=== PATIENT | female | born 1995 | race Hispanic/Latino ===

== ENCOUNTER 2022-10-18 13:26 | Emergency (ER) | payer OTHER ==
[~2022-10-18] VITALS: Ht 157.5 cm; Wt 111.4 kg
[2022-10-18] MEDS ORDERED: NS 1,000 ML IV ONE (13:55)
[2022-10-18 14:27] LABS: VENOUS BASE EXCESS 1.3 (-2.0-2.0); VENOUS O2 SATURATION 92.8 % (60.0-80.0); VENOUS PARTIAL PRESSURE CO2 46.5 mmHg (38.0-50.0); VENOUS PARTIAL PRESSURE O2 64.9 mmHg (30.0-50.0); VENOUS PH 7.381 UNITS (7.330-7.430); VENOUS STANDARD HCO3 25.5 MEQ/L; VENOUS TOTAL CO2 28.4 MEQ/L (24.0-28.0)
[2022-10-18 14:43] LABS: BASO # 0.1 10^3/uL (0.0-0.2); BASO % 0.7 % (0.0-1.0); LYMPH # 2.9 10^3/uL (1.5-5.0); LYMPH % 29.8 % (24.0-44.0); MEAN CORPUSCULAR HEMOGLOBIN 25.9 pg (27.0-33.0); MEAN CORPUSCULAR HGB CONC 32.6 g/dl (32.0-36.5); MEAN CORPUSCULAR VOLUME 79.5 fl (80.0-96.0); MONO # 0.5 10^3/uL (0.0-0.8); MONO % 4.7 % (2.0-8.0); NEUTROPHILS # 6.2 10^3/uL (1.5-8.5); NEUTROPHILS % 64.3 % (36.0-66.0); PLATELET COUNT, AUTOMATED 414 10^3/uL (150-450); RED BLOOD COUNT 5.41 10^6/uL (4.00-5.40); WHITE BLOOD COUNT 9.7 10^3/uL (4.0-10.0)
[2022-10-18 14:59] LABS: AMPHETAMINES LEVEL URINE NEGATIVE (NEGATIVE); BARBITURATES URINE NEGATIVE (NEGATIVE); CANNABINOIDS URINE NEGATIVE (NEGATIVE); COCAINE METABOLITE URINE NEGATIVE (NEGATIVE); METHADONE URINE NEGATIVE (NEGATIVE); OPIATES URINE NEGATIVE (NEGATIVE); PHENCYCLIDINE URINE NEGATIVE (NEGATIVE)
[2022-10-18 15:00] LABS: BENZODIAZEPINES URINE POSITIVE (NEGATIVE)
[2022-10-18 15:02] LABS: ETHYL ALCOHOL (ETHANOL) < 0.003 % (0.000-0.010); LIPASE 28 U/L (12-53)
[2022-10-18 15:07] LABS: ALBUMIN 3.6 G/DL (3.2-5.2); ALKALINE PHOSPHATASE 105 U/L (46-116); ALT/SGPT 26 U/L (7.0-40); AST/SGOT 16 U/L (<34); BILIRUBIN,DIRECT < 0.1 MG/DL (<0.4); BILIRUBIN,TOTAL 0.2 MG/DL (0.3-1.2); TOTAL PROTEIN 6.3 G/DL (5.7-8.2)
[2022-10-18 15:12] LABS: HCG, SERUM QUALITATIVE NEGATIVE (NEGATIVE)
[2022-10-18 15:16] LABS: OSMOLALITY SERUM 288 MOSM/KG (275-295)
[2022-10-18 15:36] LABS: HEMOGLOBIN A1c 10.7 % (4.0-6.0)
[2022-10-18 16:30] VITALS: BP 100/56
[2022-10-18] MEDS ORDERED: INSULIN LISPRO (NovoLOG) PER UNIT SC SCH (17:30)
== END 2022-10-18 16:59 | disposition home or self-care (01) ==
LOC: EDBD 13:26 → M ED 13:26
DX: E10.65 Type 1 diabetes mellitus with hyperglycemia (principal); E03.9 Hypothyroidism, unspecified; J45.909 Unspecified asthma, uncomplicated; R51.9 Headache, unspecified; F42.9 Obsessive-compulsive disorder, unspecified; F43.10 Post-traumatic stress disorder, unspecified; F31.9 Bipolar disorder, unspecified; Z88.0 Allergy status to penicillin; Z88.6 Allergy status to analgesic agent; Z88.8 Allergy status to other drugs, medicaments and biological substances
CPT/HCPCS: 80047; 80076; 80307; 82010; 82077; 82803; 83036; 83690; 83930; 84703; 85025; 93005; 93041; 94760; 99285; J1815

== ENCOUNTER 2023-04-23 21:30 | Emergency (ER) | payer OTHER ==
[~2023-04-23] VITALS: Ht 157.5 cm; Wt 112.6 kg
[2023-04-23 21:39] VITALS: TEMP 99.5
[2023-04-23 22:45] LABS: VENOUS BASE EXCESS 0.5 (-2.0-2.0); VENOUS HCO3 25.4 MMOL/L (23.0-27.0); VENOUS O2 SATURATION 82.7 % (60.0-80.0); VENOUS PARTIAL PRESSURE CO2 41.6 mmHg (38.0-50.0); VENOUS PARTIAL PRESSURE O2 47.4 mmHg (30.0-50.0); VENOUS PH 7.403 UNITS (7.330-7.430); VENOUS STANDARD HCO3 24.6 MMOL/L; VENOUS TOTAL CO2 26.6 MMOL/L (24.0-28.0)
[2023-04-23 22:54] LABS: BASO # 0.1 10^3/uL (0.0-0.2); BASO % 0.8 % (0.0-1.0); HEMATOCRIT 38.9 % (36.0-47.0); HEMOGLOBIN 12.7 g/dl (12.0-15.5); LYMPH # 3.6 10^3/uL (1.5-5.0); LYMPH % 25.7 % (24.0-44.0); MEAN CORPUSCULAR HEMOGLOBIN 24.9 pg (27.0-33.0); MEAN CORPUSCULAR HGB CONC 32.6 g/dl (32.0-36.5); MEAN CORPUSCULAR VOLUME 76.3 fl (80.0-96.0); MONO # 0.7 10^3/uL (0.0-0.8); MONO % 4.7 % (2.0-8.0); NEUTROPHILS # 9.7 10^3/uL (1.5-8.5); NEUTROPHILS % 68.3 % (36.0-66.0); PLATELET COUNT, AUTOMATED 449 10^3/uL (150-450); WHITE BLOOD COUNT 14.2 10^3/uL (4.0-10.0)
[2023-04-23 23:02] LABS: HEMOGLOBIN A1c 10.2 % (4.0-6.0)
[2023-04-23] MEDS ORDERED: ONDANSETRON 4MG 2ML VIAL IV ONE (23:05)
[2023-04-23] MEDS ORDERED: NS 1,000 ML IV ONE (23:05)
[2023-04-23 23:13] LABS: LIPASE 31 U/L (12-53)
[2023-04-23 23:15] LABS: ACETONE/KETONE 0.14 MMOL/L (0.02-0.27)
[2023-04-23 23:16] LABS: ALKALINE PHOSPHATASE 89 U/L (46-116); ALT/SGPT 31 U/L (7.0-40); AST/SGOT 17 U/L (<34); BILIRUBIN,DIRECT < 0.1 MG/DL (<0.4); BILIRUBIN,TOTAL 0.3 MG/DL (0.3-1.2); BLOOD UREA NITROGEN 8 MG/DL (9-23); CALCIUM LEVEL 9.4 MG/DL (8.5-10.1); CARBON DIOXIDE LEVEL 28 MMOL/L (20-31); CHLORIDE LEVEL 103 MMOL/L (98-107); CREATININE FOR GFR 0.49 MG/DL (0.55-1.30); GLOMERULAR FILTRATION RATE > 60.0 (>60); GLUCOSE, FASTING 216 MG/DL (60-100); POTASSIUM SERUM 3.6 MMOL/L (3.5-5.1); SODIUM LEVEL 139 MMOL/L (136-145); TOTAL PROTEIN 6.4 G/DL (5.7-8.2)
[2023-04-23 23:22] LABS: OSMOLALITY SERUM 288 MOSM/KG (275-295)
[2023-04-24] MEDS ORDERED: DIFL150T PO (00:26)
[2023-04-24 00:58] VITALS: BP 126/83; O2SAT 99
== END 2023-04-24 01:00 | disposition home or self-care (01) ==
LOC: EDBD 21:30 → M ED 21:30
DX: E10.65 Type 1 diabetes mellitus with hyperglycemia (principal); B37.31 Acute candidiasis of vulva and vagina; Z88.0 Allergy status to penicillin
CPT/HCPCS: 80048; 80076; 81001; 82010; 82803; 83036; 83690; 83930; 85025; 87086; 96361; 96374; 99284; J2405

== ENCOUNTER 2023-08-14 11:47 | Emergency (ER) | payer OTHER ==
[~2023-08-14] VITALS: Ht 154.9 cm; Wt 111.4 kg
[~2023-08-14 11:47] MED LIST: DIFL150T PO
[2023-08-14 12:14] VITALS: TEMP 98.5
[2023-08-14] MEDS ORDERED: NS 1,000 ML IV ONE ×2 (12:55→14:15)
[2023-08-14] MEDS ORDERED: ONDANSETRON 4MG 2ML VIAL IV ONE (13:40)
[2023-08-14] MEDS ORDERED: ACETAMINOPHEN 325 MG TAB PO ONE (13:40)
[2023-08-14 13:54] LABS: VENOUS BASE EXCESS 0.1 (-2.0-2.0); VENOUS HCO3 26.3 MMOL/L (23.0-27.0); VENOUS PARTIAL PRESSURE CO2 49.2 mmHg (38.0-50.0); VENOUS PARTIAL PRESSURE O2 55.5 mmHg (30.0-50.0); VENOUS PH 7.346 UNITS (7.330-7.430); VENOUS STANDARD HCO3 24.4 MMOL/L; VENOUS TOTAL CO2 27.8 MMOL/L (24.0-28.0)
[2023-08-14 14:17] VITALS: O2SAT 98
[2023-08-14 14:17] LABS: ACETONE/KETONE 0.11 MMOL/L (0.02-0.27)
[2023-08-14 14:20] LABS: HCG, SERUM QUALITATIVE NEGATIVE (NEGATIVE)
[2023-08-14 14:30] VITALS: BP 108/63
[2023-08-14 14:56] LABS: HEMOGLOBIN A1c 9.6 % (4.0-6.0)
[2023-08-14 15:00] LABS: BLOOD UREA NITROGEN 12 MG/DL (9-23); CALCIUM LEVEL 9.1 MG/DL (8.5-10.1); CARBON DIOXIDE LEVEL 26 MMOL/L (20-31); CHLORIDE LEVEL 107 MMOL/L (98-107); CREATININE FOR GFR 0.46 MG/DL (0.55-1.30); GLOMERULAR FILTRATION RATE > 60.0 (>60); GLUCOSE, FASTING 261 MG/DL (60-100); POTASSIUM SERUM 4.3 MMOL/L (3.5-5.1); SODIUM LEVEL 140 MMOL/L (136-145)
== END 2023-08-14 15:03 | disposition home or self-care (01) ==
LOC: EDBD 11:47 → M ED 11:47
DX: E10.65 Type 1 diabetes mellitus with hyperglycemia (principal); Z79.899 Other long term (current) drug therapy; Z88.0 Allergy status to penicillin; Z88.8 Allergy status to other drugs, medicaments and biological substances; Z88.6 Allergy status to analgesic agent
CPT/HCPCS: 80048; 81001; 82010; 82803; 83036; 84703; 93005; 93041; 96374; 99285; J2405

== ENCOUNTER 2023-09-09 19:16 | Emergency (ER) | payer OTHER ==
[~2023-09-09] VITALS: Ht 154.9 cm; Wt 111.8 kg
[2023-09-09 19:16] VITALS: BP 130/73; TEMP 97.8; O2SAT 97
[2023-09-09] MEDS ORDERED: NOVOINJ3 (19:35)
[2023-09-09] MEDS ORDERED: OMEP-173 (19:35)
[2023-09-09] MEDS ORDERED: GEOD40CA13 PO (19:35)
[2023-09-09] MEDS ORDERED: NOVOINJ SC (19:35)
[2023-09-09] MEDS ORDERED: SYNT75TA (19:35)
[2023-09-09] MEDS ORDERED: PRIS100T PO (19:35)
[2023-09-09] MEDS ORDERED: LANTINJ4 (19:35)
[2023-09-09] MEDS ORDERED: LAMO100T3 (19:35)
[2023-09-09] MEDS ORDERED: ALBU8.5H (19:35)
== END 2023-09-09 20:21 | disposition left against medical advice (07) ==
LOC: M ED 19:16
DX: Z53.21 Procedure and treatment not carried out due to patient leaving prior to being seen by health care provider (principal)

== ENCOUNTER 2023-09-12 03:40 | Emergency (ER) | payer OTHER ==
[~2023-09-12] VITALS: Ht 162.6 cm; Wt 89.9 kg
[~2023-09-12 03:40] MED LIST changes: +ALBU8.5H; +GEOD40CA13 PO; +LAMO100T3; +LANTINJ4; +NOVOINJ SC; +NOVOINJ3; +OMEP-173; +PRIS100T PO; +SYNT75TA
[2023-09-12] MEDS: ONDANSETRON 4MG 2ML VIAL IV ONE (04:20)
[2023-09-12] MEDS: MORPHINE 4 MG/ML 1ML VIAL IV ONE (04:20)
[2023-09-12] MEDS: NS 1,000 ML IV ONE ×2 (04:20→06:57)
[2023-09-12 04:27] LABS: BASO # 0.1 10^3/uL (0.0-0.2); BASO % 0.4 % (0.0-1.0); HEMATOCRIT 37.9 % (36.0-47.0); HEMOGLOBIN 11.7 g/dl (12.0-15.5); LYMPH # 2.1 10^3/uL (1.5-5.0); LYMPH % 10.1 % (24.0-44.0); MEAN CORPUSCULAR HGB CONC 30.9 g/dl (32.0-36.5); MEAN CORPUSCULAR VOLUME 74.6 fl (80.0-96.0); MONO # 0.9 10^3/uL (0.0-0.8); MONO % 4.5 % (2.0-8.0); NEUTROPHILS # 17.2 10^3/uL (1.5-8.5); NEUTROPHILS % 84.4 % (36.0-66.0); PLATELET COUNT, AUTOMATED 501 10^3/uL (150-450); RED BLOOD COUNT 5.08 10^6/uL (4.00-5.40); WHITE BLOOD COUNT 20.4 10^3/uL (4.0-10.0)
[2023-09-12 04:41] LABS: LIPASE 21 U/L (12-53)
[2023-09-12 04:43] LABS: ALBUMIN 3.5 G/DL (3.2-5.2); ALKALINE PHOSPHATASE 133 U/L (46-116); ALT/SGPT 57 U/L (7.0-40); AST/SGOT 43 U/L (<34); BILIRUBIN,DIRECT < 0.1 MG/DL (<0.4); BILIRUBIN,TOTAL 0.2 MG/DL (0.3-1.2); BLOOD UREA NITROGEN 9 MG/DL (9-23); CALCIUM LEVEL 8.9 MG/DL (8.5-10.1); CARBON DIOXIDE LEVEL 25 MMOL/L (20-31); CHLORIDE LEVEL 104 MMOL/L (98-107); CREATININE FOR GFR 0.48 MG/DL (0.55-1.30); GLOMERULAR FILTRATION RATE > 60.0 (>60); GLUCOSE, FASTING 215 MG/DL (60-100); POTASSIUM SERUM 4.3 MMOL/L (3.5-5.1); SODIUM LEVEL 137 MMOL/L (136-145); TOTAL PROTEIN 6.4 G/DL (5.7-8.2)
[2023-09-12 05:01] LABS: HCG, SERUM QUALITATIVE NEGATIVE (NEGATIVE)
[2023-09-12] MEDS: GASTROGRAFIN SOLUTION 30ML PO SCH (05:27)
[2023-09-12] MEDS: LevoFLOXacin IV 750 MG in IV 1 EA IV ONE (05:27)
[2023-09-12] MEDS ORDERED: ISOVUE-370 76% 100ML VIAL As Ordered ONE (05:44)
[2023-09-12 08:30] VITALS: BP 93/60; TEMP 98.6; O2SAT 99
== END 2023-09-12 08:36 | disposition home or self-care (01) ==
LOC: M ED 03:40
DX: E11.43 Type 2 diabetes mellitus with diabetic autonomic (poly)neuropathy (principal); J45.909 Unspecified asthma, uncomplicated; F31.9 Bipolar disorder, unspecified; Z88.0 Allergy status to penicillin; Z88.8 Allergy status to other drugs, medicaments and biological substances; Z88.6 Allergy status to analgesic agent; Z79.899 Other long term (current) drug therapy; Z79.4 Long term (current) use of insulin; Z79.51 Long term (current) use of inhaled steroids
CPT/HCPCS: 74177; 80048; 80076; 81001; 83605; 83690; 84703; 85025; 87040; 87086; 93041; 96365; 96375; 99285; J1956; J2405; Q9963; Q9967

== ENCOUNTER 2024-01-05 21:56 | Emergency (ER) | payer OTHER ==
[~2024-01-05] VITALS: Ht 152.4 cm; Wt 111.3 kg
[2024-01-05 23:16] LABS: VENOUS BASE EXCESS -0.3 (-2.0-2.0); VENOUS HCO3 25.7 MMOL/L (23.0-27.0); VENOUS O2 SATURATION 80.1 % (60.0-80.0); VENOUS PARTIAL PRESSURE CO2 47.7 mmHg (38.0-50.0); VENOUS PARTIAL PRESSURE O2 45.8 mmHg (30.0-50.0); VENOUS PH 7.349 UNITS (7.330-7.430); VENOUS STANDARD HCO3 23.9 MMOL/L; VENOUS TOTAL CO2 27.1 MMOL/L (24.0-28.0)
[2024-01-05 23:23] LABS: BASO # 0.1 10^3/uL (0.0-0.2); BASO % 0.5 % (0.0-1.0); HEMATOCRIT 34.2 % (36.0-47.0); HEMOGLOBIN 10.4 g/dl (12.0-15.5); LYMPH # 3.9 10^3/uL (1.5-5.0); LYMPH % 29.1 % (24.0-44.0); MEAN CORPUSCULAR HEMOGLOBIN 21.8 pg (27.0-33.0); MEAN CORPUSCULAR HGB CONC 30.4 g/dl (32.0-36.5); MEAN CORPUSCULAR VOLUME 71.8 fl (80.0-96.0); MONO # 0.5 10^3/uL (0.0-0.8); MONO % 3.7 % (2.0-8.0); NEUTROPHILS # 8.8 10^3/uL (1.5-8.5); NEUTROPHILS % 66.1 % (36.0-66.0); PLATELET COUNT, AUTOMATED 509 10^3/uL (150-450); RED BLOOD COUNT 4.76 10^6/uL (4.00-5.40); WHITE BLOOD COUNT 13.4 10^3/uL (4.0-10.0)
[2024-01-05] MEDS: ONDANSETRON 4MG 2ML VIAL IV ONE (23:27)
[2024-01-05] MEDS: NS 1,000 ML IV ONE (23:27)
[2024-01-05 23:43] LABS: HEMOGLOBIN A1c 8.3 % (4.0-6.0)
[2024-01-05 23:44] LABS: LIPASE 37 U/L (12-53)
[2024-01-05 23:46] LABS: ACETONE/KETONE 0.08 MMOL/L (0.02-0.27); BLOOD UREA NITROGEN 9 MG/DL (9-23); CALCIUM LEVEL 8.8 MG/DL (8.5-10.1); CARBON DIOXIDE LEVEL 25 MMOL/L (20-31); CHLORIDE LEVEL 106 MMOL/L (98-107); CREATININE FOR GFR 0.44 MG/DL (0.55-1.30); GLOMERULAR FILTRATION RATE > 60.0 (>60); GLUCOSE, FASTING 270 MG/DL (60-100); SODIUM LEVEL 139 MMOL/L (136-145)
[2024-01-05 23:47] LABS: ALBUMIN 3.5 G/DL (3.2-5.2); ALKALINE PHOSPHATASE 93 U/L (46-116); ALT/SGPT 22 U/L (7.0-40); AST/SGOT 10 U/L (<34); BILIRUBIN,DIRECT < 0.1 MG/DL (<0.4); BILIRUBIN,TOTAL < 0.2 MG/DL (0.3-1.2); TOTAL PROTEIN 5.9 G/DL (5.7-8.2)
[2024-01-05 23:48] LABS: OSMOLALITY SERUM 296 MOSM/KG (275-295)
[2024-01-05 23:51] LABS: HCG, SERUM QUALITATIVE NEGATIVE (NEGATIVE)
[2024-01-06 00:45] VITALS: BP 115/68; TEMP 98.1; O2SAT 98
[2024-01-06] MEDS ORDERED: ONDA-282 PO (00:55)
== END 2024-01-06 01:32 | disposition home or self-care (01) ==
LOC: M ED 21:56
DX: E10.65 Type 1 diabetes mellitus with hyperglycemia (principal); J45.909 Unspecified asthma, uncomplicated; E03.9 Hypothyroidism, unspecified; F31.9 Bipolar disorder, unspecified; R00.0 Tachycardia, unspecified; Z88.0 Allergy status to penicillin; Z88.8 Allergy status to other drugs, medicaments and biological substances; Z91.048 Other nonmedicinal substance allergy status; Z79.51 Long term (current) use of inhaled steroids; Z79.4 Long term (current) use of insulin; Z79.899 Other long term (current) drug therapy
CPT/HCPCS: 80047; 80048; 80076; 81001; 82010; 82803; 83036; 83690; 83930; 84703; 85025; 93005; 93041; 94760; 96374; 99284; J2405

== ENCOUNTER 2024-01-11 10:01 | Emergency (ER) | payer OTHER ==
[~2024-01-11] VITALS: Ht 152.4 cm; Wt 109.6 kg
[~2024-01-11 10:01] MED LIST changes: +ONDA-282 PO
[2024-01-11 10:10] VITALS: BP 134/85; TEMP 98.7; O2SAT 97
== END 2024-01-11 11:12 | disposition left against medical advice (07) ==
LOC: M ED 10:01
DX: Z53.21 Procedure and treatment not carried out due to patient leaving prior to being seen by health care provider (principal)

== ENCOUNTER 2024-04-02 22:03 | Emergency (ER) | payer OTHER ==
[~2024-04-02] VITALS: Ht 154.9 cm; Wt 105.0 kg
[2024-04-02 22:29] LABS: VENOUS BASE EXCESS -1.9 (-2.0-2.0); VENOUS HCO3 22.7 MMOL/L (23.0-27.0); VENOUS O2 SATURATION 94.5 % (60.0-80.0); VENOUS PARTIAL PRESSURE CO2 38.5 mmHg (38.0-50.0); VENOUS PH 7.389 UNITS (7.330-7.430); VENOUS STANDARD HCO3 22.8 MMOL/L; VENOUS TOTAL CO2 23.9 MMOL/L (24.0-28.0)
[2024-04-02 22:33] LABS: BASO # 0.1 10^3/uL (0.0-0.2); BASO % 0.5 % (0.0-1.0); HEMATOCRIT 36.7 % (36.0-47.0); HEMOGLOBIN 11.7 g/dl (12.0-15.5); LYMPH # 0.7 10^3/uL (1.5-5.0); LYMPH % 5.8 % (24.0-44.0); MEAN CORPUSCULAR HEMOGLOBIN 23.5 pg (27.0-33.0); MEAN CORPUSCULAR HGB CONC 31.9 g/dl (32.0-36.5); MEAN CORPUSCULAR VOLUME 73.8 fl (80.0-96.0); MONO # 0.5 10^3/uL (0.0-0.8); MONO % 3.8 % (2.0-8.0); NEUTROPHILS # 10.5 10^3/uL (1.5-8.5); NEUTROPHILS % 89.4 % (36.0-66.0); PLATELET COUNT, AUTOMATED 409 10^3/uL (150-450); RED BLOOD COUNT 4.97 10^6/uL (4.00-5.40); WHITE BLOOD COUNT 11.7 10^3/uL (4.0-10.0)
[2024-04-02 23:08] LABS: CPK CREATINE PHOSPHOKINASE 40 U/L (34-145)
[2024-04-02 23:09] LABS: ALBUMIN 3.8 G/DL (3.2-5.2); ALKALINE PHOSPHATASE 103 U/L (46-116); ALT/SGPT 26 U/L (7.0-40); AST/SGOT < 8 U/L (<34); BILIRUBIN,DIRECT < 0.1 MG/DL (<0.4); BILIRUBIN,TOTAL 0.3 MG/DL (0.3-1.2); BLOOD UREA NITROGEN 7 MG/DL (9-23); CALCIUM LEVEL 8.6 MG/DL (8.5-10.1); CARBON DIOXIDE LEVEL 25 MMOL/L (20-31); CHLORIDE LEVEL 106 MMOL/L (98-107); CK-MB VALUE MASS < 1.0 NG/ML (<3.6); CREATININE FOR GFR 0.52 MG/DL (0.55-1.30); GLOMERULAR FILTRATION RATE > 60.0 (>60); GLUCOSE, FASTING 205 MG/DL (60-100); POTASSIUM SERUM 3.7 MMOL/L (3.5-5.1); SODIUM LEVEL 137 MMOL/L (136-145); TOTAL PROTEIN 6.5 G/DL (5.7-8.2)
[2024-04-02 23:11] LABS: THYROID STIMULATING HORMONE 0.974 uIU/ML (0.55-4.78)
[2024-04-02] MEDS: NS 500 ML IV ONE (23:17)
[2024-04-02] MEDS: ACETAMINOPHEN TAB 650MG DOSE (2X325MG) PO ONE (23:17)
[2024-04-02 23:27] LABS: HCG, SERUM QUALITATIVE NEGATIVE (NEGATIVE)
[2024-04-02] MEDS ORDERED: ISOVUE-370 76% 100ML VIAL As Ordered ONE (23:41)
[2024-04-03] MEDS: NS 1,000 ML IV SCH (00:13)
[2024-04-03] MEDS: LevoFLOXacin IV 750 MG in IV 1 EA IV ONE (00:13)
[2024-04-03 01:08] LABS: CK-MB VALUE MASS < 1.0 NG/ML (<3.6)
[2024-04-03 01:11] LABS: CPK CREATINE PHOSPHOKINASE 53 U/L (34-145); MB/CK RELATIVE INDEX 1.88 (< OR =4)
[2024-04-03 01:59] VITALS: TEMP 100.1
[2024-04-03 03:00] VITALS: BP 104/60; O2SAT 97
== END 2024-04-03 03:53 | disposition home or self-care (01) ==
LOC: M ED 22:03
DX: U07.1 COVID-19 (principal); R00.0 Tachycardia, unspecified; E11.9 Type 2 diabetes mellitus without complications; E03.9 Hypothyroidism, unspecified; F31.9 Bipolar disorder, unspecified; J45.909 Unspecified asthma, uncomplicated; F17.210 Nicotine dependence, cigarettes, uncomplicated; K21.9 Gastro-esophageal reflux disease without esophagitis; Z88.0 Allergy status to penicillin; Z88.8 Allergy status to other drugs, medicaments and biological substances; Z79.51 Long term (current) use of inhaled steroids; Z79.4 Long term (current) use of insulin; Z79.899 Other long term (current) drug therapy
CPT/HCPCS: 71275; 80048; 80076; 81001; 82550; 82553; 82803; 83605; 83880; 84443; 84484; 84703; 85025; 87040; 87486; 87581; 87633; 87798; 87880; 93005; 93041; 93970; 94760; 96360; 96365; 96366; 99285; J1956; Q9967

== ENCOUNTER 2024-05-15 03:26 | Emergency (ER) | payer OTHER ==
[~2024-05-15] VITALS: Ht 154.9 cm; Wt 101.4 kg
[2024-05-15 03:43] VITALS: TEMP 98.2
[2024-05-15 04:00] LABS: BASO # 0.1 10^3/uL (0.0-0.2); BASO % 0.7 % (0.0-1.0); HEMATOCRIT 36.4 % (36.0-47.0); HEMOGLOBIN 11.5 g/dl (12.0-15.5); LYMPH # 3.9 10^3/uL (1.5-5.0); LYMPH % 19.3 % (24.0-44.0); MEAN CORPUSCULAR HEMOGLOBIN 23.1 pg (27.0-33.0); MEAN CORPUSCULAR HGB CONC 31.6 g/dl (32.0-36.5); MEAN CORPUSCULAR VOLUME 73.2 fl (80.0-96.0); MONO % 4.8 % (2.0-8.0); NEUTROPHILS # 14.9 10^3/uL (1.5-8.5); NEUTROPHILS % 74.4 % (36.0-66.0); PLATELET COUNT, AUTOMATED 605 10^3/uL (150-450); RED BLOOD COUNT 4.97 10^6/uL (4.00-5.40)
[2024-05-15 04:24] LABS: CK-MB VALUE MASS < 1.0 NG/ML (<3.6)
[2024-05-15 04:25] LABS: BLOOD UREA NITROGEN 11 MG/DL (9-23); CARBON DIOXIDE LEVEL 21 MMOL/L (20-31); CHLORIDE LEVEL 107 MMOL/L (98-107); CPK CREATINE PHOSPHOKINASE 43 U/L (34-145); CREATININE FOR GFR 0.58 MG/DL (0.55-1.30); GLOMERULAR FILTRATION RATE > 60.0 (>60); GLUCOSE, FASTING 227 MG/DL (60-100); MB/CK RELATIVE INDEX 2.32 (< OR =4); POTASSIUM SERUM 3.9 MMOL/L (3.5-5.1); SODIUM LEVEL 137 MMOL/L (136-145)
[2024-05-15 05:51] LABS: CK-MB VALUE MASS < 1.0 NG/ML (<3.6)
[2024-05-15 05:52] LABS: CPK CREATINE PHOSPHOKINASE 41 U/L (34-145); MB/CK RELATIVE INDEX 2.43 (< OR =4)
[2024-05-15 06:00] VITALS: BP 97/51; O2SAT 96
[2024-05-15] MEDS ORDERED: ACETAMINOPHEN 325 MG TAB PO ONE (06:35)
[2024-05-15 07:59] LABS: HCG, SERUM QUALITATIVE NEGATIVE (NEGATIVE)
== END 2024-05-15 06:50 | disposition left against medical advice (07) ==
LOC: M ED 03:26
DX: R07.9 Chest pain, unspecified (principal); R00.0 Tachycardia, unspecified; E11.9 Type 2 diabetes mellitus without complications; J45.909 Unspecified asthma, uncomplicated; E03.9 Hypothyroidism, unspecified; F31.9 Bipolar disorder, unspecified; Z88.0 Allergy status to penicillin; Z88.8 Allergy status to other drugs, medicaments and biological substances; Z79.51 Long term (current) use of inhaled steroids; Z79.4 Long term (current) use of insulin; Z79.899 Other long term (current) drug therapy; Z53.9 Procedure and treatment not carried out, unspecified reason

== ENCOUNTER 2024-10-04 12:38 | Emergency (ER) | payer OTHER ==
[~2024-10-04] VITALS: Ht 154.9 cm; Wt 99.5 kg
[~2024-10-04 12:38] MED LIST changes: -GEOD40CA13 PO; +ZIPR40CA27 PO
[2024-10-04 12:41] VITALS: BP 120/66; TEMP 98.6; O2SAT 97
[2024-10-04] MEDS ORDERED: ZIPR20CA13 (12:44)
[2024-10-04] MEDS ORDERED: DULO1CAP5 (12:44)
== END 2024-10-04 13:25 | disposition home or self-care (01) ==
LOC: M ED 12:38
DX: T50.991A Poisoning by other drugs, medicaments and biological substances, accidental (unintentional), initial encounter (principal); Z79.899 Other long term (current) drug therapy; E11.9 Type 2 diabetes mellitus without complications; J45.909 Unspecified asthma, uncomplicated; F31.9 Bipolar disorder, unspecified; F43.10 Post-traumatic stress disorder, unspecified; F42.9 Obsessive-compulsive disorder, unspecified; Z88.0 Allergy status to penicillin; Z88.8 Allergy status to other drugs, medicaments and biological substances; Z79.4 Long term (current) use of insulin; Z79.890 Hormone replacement therapy

== ENCOUNTER 2024-10-15 08:40 | Emergency (ER) | payer OTHER ==
[~2024-10-15] VITALS: Ht 154.9 cm; Wt 99.1 kg
[~2024-10-15 08:40] MED LIST changes: +DULO1CAP5; +ZIPR20CA13
[2024-10-15 09:15] LABS: KETONE, URINE AUTO RFX NEGATIVE (NEGATIVE); LEUKOCYTE ESTERASE UR AUTO RFX NEGATIVE (NEGATIVE); NITRITE, URINE AUTO RFX NEGATIVE (NEGATIVE); RBC, URINE AUTO RFX 0 /HPF (0-3); SQUAM EPITHELIAL CELL UR AURFX 5 /HPF (0-6); WBC, URINE AUTO RFX 0 /HPF (0-3)
[2024-10-15 09:59] LABS: BASO # 0.1 10^3/uL (0.0-0.2); BASO % 0.7 % (0.0-1.0); EOS % 0.1 % (0.0-3.0); HEMATOCRIT 38.9 % (36.0-47.0); LYMPH # 3.5 10^3/uL (1.5-5.0); LYMPH % 25.6 % (24.0-44.0); MEAN CORPUSCULAR HEMOGLOBIN 22.5 pg (27.0-33.0); MEAN CORPUSCULAR HGB CONC 30.8 g/dl (32.0-36.5); MEAN CORPUSCULAR VOLUME 72.8 fl (80.0-96.0); MONO # 0.5 10^3/uL (0.0-0.8); MONO % 3.6 % (2.0-8.0); NEUTROPHILS # 9.6 10^3/uL (1.5-8.5); NEUTROPHILS % 69.5 % (36.0-66.0); PLATELET COUNT, AUTOMATED 562 10^3/uL (150-450); RED BLOOD COUNT 5.34 10^6/uL (4.00-5.40); WHITE BLOOD COUNT 13.8 10^3/uL (4.0-10.0)
[2024-10-15 10:28] LABS: BLOOD UREA NITROGEN 7 MG/DL (9-23); CALCIUM LEVEL 9.9 MG/DL (8.5-10.1); CARBON DIOXIDE LEVEL 27 MMOL/L (20-31); CHLORIDE LEVEL 101 MMOL/L (98-107); CREATININE FOR GFR 0.49 MG/DL (0.55-1.30); GLOMERULAR FILTRATION RATE > 60.0 (>60); GLUCOSE, FASTING 149 MG/DL (60-100); POTASSIUM SERUM 4.2 MMOL/L (3.5-5.1); SODIUM LEVEL 138 MMOL/L (136-145)
[2024-10-15] MEDS ORDERED: BLOO-217 (11:16)
[2024-10-15 14:36] LABS: LIPASE 26 U/L (12-53)
[2024-10-15 14:38] LABS: ALBUMIN 3.8 G/DL (3.2-5.2); ALKALINE PHOSPHATASE 100 U/L (35-104); ALT/SGPT 23 U/L (7.0-40); AST/SGOT 9 U/L (<34); BILIRUBIN,DIRECT < 0.1 MG/DL (<0.4); BILIRUBIN,TOTAL 0.3 MG/DL (0.3-1.2); TOTAL PROTEIN 6.8 G/DL (5.7-8.2)
[2024-10-15 14:41] VITALS: BP 136/70; TEMP 98.1; O2SAT 98
== END 2024-10-15 14:59 | disposition home or self-care (01) ==
LOC: M ED 08:40
DX: K80.20 Calculus of gallbladder without cholecystitis without obstruction (principal); E11.9 Type 2 diabetes mellitus without complications; M79.7 Fibromyalgia; F31.9 Bipolar disorder, unspecified; F43.10 Post-traumatic stress disorder, unspecified; Z88.0 Allergy status to penicillin; Z88.8 Allergy status to other drugs, medicaments and biological substances; Z79.51 Long term (current) use of inhaled steroids; Z79.4 Long term (current) use of insulin; Z79.899 Other long term (current) drug therapy

== ENCOUNTER 2025-02-11 03:45 | Emergency (ER) | payer OTHER ==
[~2025-02-11] VITALS: Ht 154.9 cm; Wt 100.5 kg
[~2025-02-11 03:45] MED LIST changes: -ALBU8.5H; +ALBU8.5H INH; +BLOO-217; -DULO1CAP5; +DULO1CAP5 PO; -LAMO100T3; +LAMO100T3 PO; +LAMO100T80 PO; -LANTINJ4; +LANTINJ4 INJ; +LANTINJ4 SC; -NOVOINJ3; +NOVOINJ3 INJ; -OMEP-173; +OMEP-173 PO; -SYNT75TA; +SYNT75TA PO; -ZIPR20CA13; +ZIPR20CA13 PO
[2025-02-11 04:30] LABS: BASO # 0.1 10^3/uL (0.0-0.2); BASO % 0.4 % (0.0-1.0); EOS # 0.0 10^3/uL (0.0-0.5); EOS % 0.0 % (0.0-3.0); LYMPH # 3.7 10^3/uL (1.5-5.0); LYMPH % 18.7 % (24.0-44.0); MONO # 0.9 10^3/uL (0.0-0.8); MONO % 4.6 % (2.0-8.0); NEUTROPHILS # 14.8 10^3/uL (1.5-8.5); NEUTROPHILS % 75.7 % (36.0-66.0); PLATELET COUNT, AUTOMATED 477 10^3/uL (150-450)
[2025-02-11 04:52] LABS: CALCIUM LEVEL 8.8 MG/DL (8.5-10.1); CARBON DIOXIDE LEVEL 27 MMOL/L (20-31); CHLORIDE LEVEL 103 MMOL/L (98-107); CREATININE FOR GFR 0.50 MG/DL (0.55-1.30); GLOMERULAR FILTRATION RATE > 90.0 (>60); POTASSIUM SERUM 4.1 MMOL/L (3.5-5.1); SODIUM LEVEL 141 MMOL/L (136-145)
[2025-02-11 07:00] VITALS: TEMP 97.6
[2025-02-11 07:15] VITALS: BP 101/65
[2025-02-11 08:30] VITALS: O2SAT 99
== END 2025-02-11 08:37 | disposition home or self-care (01) ==
LOC: M ED 03:45 → EDBD 03:45 → M ED 08:37
DX: E11.65 Type 2 diabetes mellitus with hyperglycemia (principal); E03.9 Hypothyroidism, unspecified; J45.909 Unspecified asthma, uncomplicated; F31.9 Bipolar disorder, unspecified; Z88.0 Allergy status to penicillin; Z88.5 Allergy status to narcotic agent; Z88.6 Allergy status to analgesic agent; Z88.8 Allergy status to other drugs, medicaments and biological substances; Z79.51 Long term (current) use of inhaled steroids; Z79.899 Other long term (current) drug therapy